=== PATIENT | male | born 1985 | race Two or more races ===

== ENCOUNTER 2024-01-31 13:08 | Emergency (ER) | payer OTHER ==
[~2024-01-31] VITALS: Ht 172.7 cm; Wt 72.6 kg
[2024-01-31] MEDS ORDERED: NAPR-1164 PO (14:58)
[2024-01-31 15:43] VITALS: BP 145/83; TEMP 98.6; O2SAT 97
== END 2024-01-31 15:44 | disposition home or self-care (01) ==
LOC: ER 13:21
DX: S93.402A Sprain of unspecified ligament of left ankle, initial encounter (principal); W13.8XXA Fall from, out of or through other building or structure, initial encounter; Y99.0 Civilian activity done for income or pay; Y92.89 Other specified places as the place of occurrence of the external cause; Y99.8 Other external cause status
CPT/HCPCS: 73590-TC; 73610-TC; 73630-TC